=== PATIENT | female | born 1970 | race Caucasian/White ===

== ENCOUNTER 2016-03-23 10:03 | Outpatient (CLI) | payer BC ==
[~2016-03-23] VITALS: Ht 162.6 cm; Wt 64.1 kg
[2016-03-23 10:05] VITALS: BP 151/69; PULSE 86; RESP 16; Ht 162.6 cm; Wt 64.1 kg
--- NOTE | 2016-03-23 11:57 | CONS ---
[facility] INITIAL OUTPATIENT CONSULTATION NOTE DATE OF CONSULTATION: 03/23/2016 PLACE OF SERVICE: [facility] ASSESSMENT AND PLAN: A very pleasant 45-year-old lady with some comorbidities and a few operations in the past, including hysterectomy and appendectomy, who is showing signs of abdominal pain that started since her operations in mid 2015. Currently, we do not have any obvious clinical evidence of a hernia, but certainly the patient can have a small hernia that would explain her symptoms. Given these symptoms, I have recommended that we get a more recent axial image of the abdomen and I am ordering a CT scan of the abdomen and pelvis with IV and oral contrast to start the workup. If we can find a surgical reason for her pain, we are more than happy to assist with alleviating that issue. It is also possible that the patient has nonsurgical reason for pain, in which case the patient would need further consultation, likely with gastroenterology for endoscopy and colonoscopy, as well as further search for medical reasons. I explained all this to the patient in detail (no family present during my discussions with the patient) and answered all her questions to the best of my ability. I believe that the patient understands and agrees with the plan. With above assessment, I recommend the followin. CT scan of abdomen and pelvis with IV and oral contrast. 2. Follow with us after above is done. Thank you again for allowing us to participate in the care of this very pleasant lady and I am certain her wonderful family. If there are any questions , please feel free to call me at [phone]. TOTAL VISIT TIME: 45 minutes, of which more than half was spent in face-to- face discussion with the patient, as well as coordination of care between multiple physicians and providers. UPDATED CLINICAL SUMMARY: A very pleasant 45-year-old with a few comorbid issues including prior operations (appendectomy and hysterectomy), presenting with abdominal pain in the left lower quadrant. COMORBIDITIES: 1. History of cervical dysplasia. 2. Status post excision LEEP on 07/11/2014. 3. Laparoscopic appendectomy 08/21/2014. 4. 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 5 Gross hematuria status post cystoscopy and bladder biopsy 08/29/2015 with final pathology showing no malignancy or atypia and essentially mucosae with minimal superficial chronic inflammation and superficial fresh hemorrhage. HISTORY OF PRESENT ILLNESS: The patient is a very pleasant 45-year-old lady with several comorbid issues as listed above, who was kindly referred to us for a surgical consultation regarding her left lower quadrant abdominal pain that she has had since her operations in 2016. She herself feels a bulge and reports an ultrasound that reported similar findings. No episode of bowel obstruction or visits to the emergency room or hospitalization from abdominal pain or bowel obstruction. Her appetite has been normal and she does not report any significant weight gain or weight loss. No vomiting or fevers or chills or other major complaints. ALLERGIES: NO KNOWN DRUG ALLERGIES. MEDICATIONS: None. SOCIAL HISTORY: The patient does not report any smoking, drinking, or intravenous drug use. She drinks 1 cup of coffee a day. She has 2 children and does not report significant stress at her job. FAMILY HISTORY: No reported major medical, surgical or oncologic problems in the family. REVIEW OF SYSTEMS: Other than the above-mentioned, there are no other pertinent positives or pertinent negatives in a complete 14-point review of systems. PHYSICAL EXAMINATION: GENERAL: The patient appears to be a very pleasant lady of descent, appearing stated age, sitting in a chair comfortably and in no acute distress. BMI 24.3. VITAL SIGNS: Temperature 98.5, blood pressure 151/69, pulse 86, respiratory rate 16, pulse oximetry 99% on room air. HEENT: Normocephalic and atraumatic. Extraocular muscles and hearing are grossly intact bilaterally and symmetrically. Sclerae are nonicteric. Oral cavity is clear; oral mucosa appeared to be pink and moist. Dentition: fair. NECK: Supple. There is no lymphadenopathy or JVD. There is no submental, submandibular or supraclavicular lymphadenopathy. CHEST: Rises symmetrically with each breath; patient is breathing comfortably. There are no audible wheezes, rales or rhonchi on the gross exam. HEART: Pulse is regular and palpable on the right wrist. Capillary refill was normal. Carotid pulses are palpable bilaterally and symmetrically in the neck. EXTREMITIES: Lower extremities contain no pitting edema around the ankles bilaterally and symmetrically. ABDOMEN: Shows well-healed incisions without obvious hernia and no discharge or erythema on the skin. These are laparoscopic as well as a Pfannenstiel type incision. The abdomen is soft, nondistended and mildly tender to palpation in the left lower quadrant, caudal and lateral to the umbilicus. No obvious hernia either on relax state or with Valsalva. There are no peritoneal signs or guarding. There is no evidence of organomegaly, caput medusae, engorged subcutaneous veins, or ascites. SKIN: Appears to be pink and feels warm to touch. NEUROLOGIC: Awake, alert, and follows commands appropriately. LABORATORY DATA: Dated 12/2014 and 10/2014: Platelet count 334 and no other more recent labs. IMAGING: The patient's most recent available images and reports are from 2015, where an ultrasound of the abdomen showed evidence for prior hysterectomy and no free fluid or adnexal mass noted. Both ovaries were visualized and the right ovary was unchanged with small follicles. No tubular structure noted in the left ovary or adnexal region. Left ovary was visualized with small follicles and a probable small corpus luteum and no free fluid. There was no mention of hernia. Prior to that, the patient had a CT urogram 05/16/2015 showing solitary nonobstructing 2 mm calculus noted within the right kidney without hydronephrosis, perinephric stranding ureterolithiasis, or hydroureter. Small focus of wedge shaped cortical scar noted with the junction of the posterior mid to upper pole of the left kidney and fatty infiltration of the liver with multiple hepatic cysts. Note that I had a chance to review the CT and I agree completely with the liver findings of fatty liver disease, as well as multiple cysts. There are multiple other abdominal ultrasounds, but they all appear to be of recent past, but not early enough to explain patient's current symptoms. Dictated By: GI BAKER/NATALIE Conf#: [id number] DID#: [id number] CC: Marcio Banks; FARZAD VELAZQUEZ MD;*EndCC* MTDD
== END 2016-03-23 16:43 | disposition home or self-care (01) ==
LOC: HPC 10:03
PROVIDERS: ATTEND Transplant Surgery
DX: K76.89 Other specified diseases of liver (principal); K76.0 Fatty (change of) liver, not elsewhere classified; N20.0 Calculus of kidney; Q42.8 Congenital absence, atresia and stenosis of other parts of large intestine; Z90.710 Acquired absence of both cervix and uterus
CPT/HCPCS: G0463

== ENCOUNTER 2016-05-11 10:22 | Outpatient (CLI) | payer BC ==
[~2016-05-11] VITALS: Ht 162.6 cm; Wt 61.8 kg
[2016-05-11 10:37] VITALS: BP 126/56; PULSE 85; RESP 16; Ht 162.6 cm; Wt 61.8 kg
--- NOTE | 2016-05-11 11:16 | PN ---
Date/Time of Note Date/Time of Note DATE: 05/11/16 TIME: 11:14 Assessment/Plan Assessment/Plan Assessment/Plan [facility] Progress Note Date of Service: 05/11/16 Today's Impression & Plan: Overall stable. New CT showed no hernia or other general surgical issues. L ovarian cyst noted that could potentially explain the pain. May need further metal painter eval. Liver cysts benign and do not need further w/u. I explained all this to the patient in detail (no family present during my discussions with the patient) and answered all her questions to the best of my ability. I believe that the patient understands and agrees with the plan. With above assessment, I recommend the followin. F/u with Dr. Bobby for metal painter consideration of intervention for L ovarian cyst 2. F/u with PCP 3. F/u with us prn Thank you again for allowing us to participate in the care of this very pleasant lady and I am certain her wonderful family. If there are any questions , please feel free to call me at [phone]. TOTAL VISIT TIME: 20 minutes, of which more than half was spent in face-to- face discussion with the patient, as well as coordination of care between multiple physicians and providers. UPDATED CLINICAL SUMMARY: A very pleasant 45-year-old with a few comorbid issues including prior operations (appendectomy and hysterectomy), presenting with abdominal pain in the left lower quadrant. COMORBIDITIES: 1. History of cervical dysplasia. 2. Status post excision LEEP on 07/11/2014. 3. Laparoscopic appendectomy 08/21/2014. 4. 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 5 Gross hematuria status post cystoscopy and bladder biopsy 08/29/2015 with final pathology showing no malignancy or atypia and essentially mucosae with minimal superficial chronic inflammation and superficial fresh hemorrhage. Subjective: No major events or complaints; still with intermittent LLQ abd pain; no n/v/d; no sob or cp; + flatus; + BM and normal; + activity Objective: Vitals: See below Exam: GENERAL: On exam, the patient was sitting in a chair and appeared to be comfortable and in no acute distress. ABDOMEN: Soft, nontender except for minor discomfort in LLQ and nondistended. There are no peritoneal signs or guarding. SKIN: Skin appears to be pink and feels warm to touch. NEUROLOGIC: Patient is awake, alert, and follows commands appropriately. Exam/Review of Systems Vital Signs Vitals Vital Signs Date Time Temp Pulse Resp B/P Pulse Ox O2 Delivery O2 Flow Rate FiO2 05/11/16 10:37 98.3 85 16 126/56 99 Room Air GI HAMILTON M.D. May 11, 2016 11:16
== END 2016-05-11 17:00 | disposition home or self-care (01) ==
LOC: HPC 10:22
PROVIDERS: ATTEND Transplant Surgery
DX: N85.8 Other specified noninflammatory disorders of uterus (principal); R31.0 Gross hematuria
CPT/HCPCS: G0463